=== PATIENT | female | born 1995 | race Caucasian/White ===

== ENCOUNTER 2021-05-27 18:47 | Emergency (ER) | payer MEDICAID ==
[~2021-05-27] VITALS: Ht 162.6 cm; Wt 59.4 kg
[2021-05-27 18:50] VITALS: BP 129/73
--- NOTE | 2021-05-27 20:16 | NUR ---
ER-PA DISCHARGED
== END 2021-05-27 20:33 | disposition home or self-care (01) ==
LOC: ED 20:17
DX: S16.1XXA Strain of muscle, fascia and tendon at neck level, initial encounter (principal); S39.012A Strain of muscle, fascia and tendon of lower back, initial encounter; S29.012A Strain of muscle and tendon of back wall of thorax, initial encounter; J45.909 Unspecified asthma, uncomplicated; Z88.2 Allergy status to sulfonamides; V49.49XA Driver injured in collision with other motor vehicles in traffic accident, initial encounter; Y93.89 Activity, other specified; Y92.410 Unspecified street and highway as the place of occurrence of the external cause; Y99.8 Other external cause status
CPT/HCPCS: 72020; 72050; 72072; 72110; 99284